=== PATIENT | male | born 1985 | race African-American/Black ===

== ENCOUNTER 2018-08-24 02:05 | Emergency (ER) | payer SELFPAY ==
[2018-08-24] MEDS ORDERED: Ketorolac Tromethamine 60 MG/2 ML VIAL ONE (02:48)
[2018-08-24] MEDS ORDERED: Ibuprofen 200 MG TAB ONE (02:56)
--- NOTE | 2018-08-24 08:27 | RAD ---
RIGHT KNEE RADIOGRAPHS 4 VIEWS: DATE: 08/24/2018. PROVIDED CLINICAL HISTORY: Right knee pain. FINDINGS: There is no evidence for a fracture or other acute osseous abnormality. Bipartite patella is noted. Alignment appears anatomic. Joint spaces appear preserved. No evidence for knee joint capsular dis tention. IMPRESSION: No evidence for an acute osseous abnormality. If there is persistent clinical concern, conservative management and followup imaging are advised. POS: [facility]
== END 2018-08-24 03:17 | disposition home or self-care (01) ==
LOC: ERS 02:05
DX: M25.561 Pain in right knee (principal)
CPT/HCPCS: J1885